=== PATIENT | female | born 1995 | race Caucasian/White ===

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

== ENCOUNTER 2017-06-24 20:49 | Emergency (ER) | payer OTHER ==
[~2017-06-24] VITALS: Ht 165.1 cm; Wt 118.0 kg
[~2017-06-24 20:49] MED LIST changes: +BACT800T5 PO; -PROM25TA5 PO
[2017-06-24 20:51] VITALS: BP 124/73; PULSE 96; RESP 16; TEMP 98.5; O2SAT 98
--- NOTE | 2017-06-24 21:42 | PD ---
HPI Chief Complaint: Injury Time Seen by Provider: 21:29 Travel History International Travel<30 days: No Contact w/Intl Traveler<30days: No Traveled to known affect area: No History of Present Illness HPI The patient is a 21-year-old right-hand dominant female that slammed her right hand in a car door 2 days ago. She complains of pain in the right hand. She denies any other injury. [facility] Past Medical History Medical History: Denies Significant Hx Diminished Hearing: No Immunizations Current: Yes Tetanus Vaccination: < 5 Years Influenza Vaccination: No ?: Not LMP: last month Past Surgical History Surgical History: No Previous Surgery Social History Alcohol Use: No Tobacco Use: Yes (07/13 ppd) Substance Use: No Allergies-Medications (Allergen,Severity, Reaction): Coded Allergies: latex (Unverified Allergy, Intermediate, RASH, 06/24/17) Reported Meds & Prescriptions Reported Meds & Active Scripts Active No Active Prescriptions or Reported Medications Review of Systems Except as stated in HPI: all other systems reviewed are Neg Physical Exam Narrative GENERAL: Well-nourished, well-developed patient and minimal apparent distress with her right hand discomfort. Her vital signs are normal. SKIN: Focused skin assessment warm/dry. HEAD: Normocephalic. EYES: No scleral icterus. No injection or drainage. NECK: Supple, trachea midline. No JVD or lymphadenopathy. CARDIOVASCULAR: Regular rate and rhythm without murmurs, gallops, or rubs. RESPIRATORY: Breath sounds equal bilaterally. No accessory muscle use. GASTROINTESTINAL: Abdomen soft, non-tender, nondistended. MUSCULOSKELETAL: No cyanosis, or edema. There are a few ecchymoses present on the thenar eminence but no tenderness is present there. No bony deformity is present in the hand. There is some tenderness on the fourth metacarpal but no associated deformity. Good capillary refill and pinprick is present distally on all fingers. BACK: Nontender without obvious deformity. No CVA tenderness. Data Data Last Documented VS Vital Signs Date Time Temp Pulse Resp B/P (MAP) Pulse Ox O2 Delivery O2 Flow Rate FiO2 06/24/17 20:51 98.5 96 16 124/73 (90) 98 Orders Orders Hand, Complete ([id number]) (06/24/17 21:29) [facility] Medical Decision Making Medical Screen Exam Complete: Yes Emergency Medical Condition: Yes Medical Record Reviewed: Yes Interpretation(s) X-rays of the hand are normal. Differential Diagnosis Contusion hand, fractured metacarpal, dislocation or joint-highly unlikely Narrative Course The patient has a contusion of the hand. Plan: She should elevate her hand and avoid doing anything that hurts her. If she has Continued pain she should follow-up with her primary care physician. Diagnosis Primary Impression: Contusion of right hand Additional Instructions: If you have continued pain, follow-up with her primary care physician. Otherwise take Motrin [id number] for the pain. Elevate your hand above your heart as much as possible to keep the swelling down. Med/Other Pt SpecificInfo: No Change to Meds Scripts No Active Prescriptions or Reported Meds Disposition: 01 DISCHARGE HOME Condition: Stable Brodie Islas MD Jun 24, 2017 21:42
--- NOTE | 2017-06-24 21:56 | RADRPT ---
EXAM DATE/TIME: 06/24/2017 21:46 [facility] COMPARISON: No previous studies available for comparison. INDICATIONS : Slammed hand in car door. Pain in palm area MEDICAL HISTORY : None. SURGICAL HISTORY : None. ENCOUNTER: Initial ACUITY: 1 day PAIN SCORE: 4/10 LOCATION: Right Hand FINDINGS: Three view examination of the right hand demonstrates no soft tissue swelling, dislocation, or fractu re. The carpal bones appear intact. The interphalangeal and metacarpophalangeal joints are intact. Bony mineralization is normal. CONCLUSION: 1. No acute findings. Alan Rivera MD on June 24, 2017 at 21:53 Board Certified Radiologist. This report was verified electronically.
== END 2017-06-24 22:40 | disposition home or self-care (01) ==
LOC: PHEFT 20:49
DX: S60.221A Contusion of right hand, initial encounter (principal); F17.200 Nicotine dependence, unspecified, uncomplicated; W23.0XXA Caught, crushed, jammed, or pinched between moving objects, initial encounter
CPT/HCPCS: 73130; 99283

== ENCOUNTER 2017-09-21 15:59 | Emergency (ER) | payer OTHER ==
[2017-09-21 16:16] VITALS: BP 125/82; PULSE 109; RESP 18; TEMP 97.5; O2SAT 98
--- NOTE | 2017-09-21 17:12 | RADRPT ---
EXAM DATE/TIME: 09/21/2017 16:47 [facility] COMPARISON: HAND RIGHT COMPLETE ([id number]), June 24, 2017, 21:46. INDICATIONS : Right ankle pain. Patient fell and rolled the right ankle today. MEDICAL HISTORY : None. SURGICAL HISTORY : None. ENCOUNTER: Initial ACUITY: 1 day PAIN SCORE: 8/10 LOCATION: Right lateral ankle. FINDINGS: Two view examination was performed of the right ankle. The bony structures are in normal alignment. No evidence of fracture, dislocation. There is mild soft tissue swelling. No radiopaque foreign bodi es are seen. Bony mineralization is normal. CONCLUSION: 1. Mild soft tissue swelling. No acute fracture identified. Brett Irwin MD on September 21, 2017 at 17:09 Board Certified Radiologist. This report was verified electronically.
--- NOTE | 2017-09-21 18:19 | PD ---
HPI Chief Complaint: Musculoskeletal Complaint Time Seen by Provider: 17:54 Travel History International Travel<30 days: No Contact w/Intl Traveler<30days: No Traveled to known affect area: No History of Present Illness HPI 22-year-old female here with right ankle pain after twisting injury today. She denies seizure weakness extremity. Pain is worse with weightbearing. Symptom severity is mild. Alleviated with rest. PFSH Past Medical History Medical History: Denies Significant Hx Diminished Hearing: No Immunizations Current: Yes LMP: 09/12/17 Social History Alcohol Use: No Tobacco Use: Yes (2 ppd) Substance Use: No Allergies-Medications (Allergen,Severity, Reaction): Coded Allergies: latex (Unverified Allergy, Intermediate, RASH, 06/24/17) Reported Meds & Prescriptions Reported Meds & Active Scripts Active No Active Prescriptions or Reported Medications Review of Systems Except as stated in HPI: all other systems reviewed are Neg Physical Exam Narrative GENERAL: Alert and well-appearing 22-year-old female. Ambulatory without limp. SKIN: Warm and dry. HEAD: Normocephalic. NECK: Supple MUSCULOSKELETAL: No cyanosis. Right lower extremity: Tenderness and mild swelling over the lateral malleolus. Ankle is stable. Normal sensation. 2+ DP pulse. Brisk cap refill. Data Data Last Documented VS Vital Signs Date Time Temp Pulse Resp B/P (MAP) Pulse Ox O2 Delivery O2 Flow Rate FiO2 09/21/17 16:16 97.5 109 18 125/82 (96) 98 Orders Orders Ankle, Limited (Ap&Lat) (09/21/17 ) Chai Bandage (09/21/17 18:19) MDM Medical Decision Making Medical Screen Exam Complete: Yes Emergency Medical Condition: Yes Differential Diagnosis Ankle sprain, ankle fracture, metatarsal fracture, midfoot sprain Narrative Course 22-year-old female here with right ankle and foot pain after twisting injury. Extremity is neurovascularly intact. She is ambulatory with a steady gait. X- rays negative for fracture. PA and lateral view of the ankle and foot were obtained. I do not see a metatarsal fracture. She'll be treated for minor ankle/midfoot sprain. Instructed ice and elevate. Return if she develops new or worsening symptoms. Otherwise follow up with primary doctor Diagnosis Primary Impression: Ankle sprain Qualified Codes: S93.401A - Sprain of unspecified ligament of right ankle, initial encounter Referrals: Primary Care Physician Departure Forms: Tests/Procedures, Work Release Special Instructions: Avoid prolonged standing and excessive walking for one week Additional Instructions: Ice and elevate the extremity. Tylenol and ibuprofen for pain. Follow-up with her primary doctor or return to emergency department if he developed new or worsening symptoms Scripts No Active Prescriptions or Reported Meds Disposition: 01 DISCHARGE HOME Condition: Stable Chantelle Mckay Sep 21, 2017 18:19
== END 2017-09-21 18:30 | disposition home or self-care (01) ==
LOC: NEPK 15:59
DX: S93.401A Sprain of unspecified ligament of right ankle, initial encounter (principal); X50.1XXA Overexertion from prolonged static or awkward postures, initial encounter
CPT/HCPCS: 73600; 99283

== ENCOUNTER 2017-09-22 21:36 | Emergency (ER) | payer OTHER ==
[~2017-09-22] VITALS: Ht 167.6 cm; Wt 122.0 kg
[2017-09-22 21:52] VITALS: BP 123/61; PULSE 100; RESP 18; TEMP 98.2; O2SAT 98
--- NOTE | 2017-09-22 22:10 | PD ---
HPI Chief Complaint: Musculoskeletal Complaint Time Seen by Provider: 22:06 Travel History International Travel<30 days: No Contact w/Intl Traveler<30days: No Traveled to known affect area: No History of Present Illness HPI 22-year-old female presents to the ED for evaluation of 6/10 right foot pain. Onset yesterday after she tripped and fell. Unsure of how she landed. She states that she was seen earlier at her ankle checked out. She states that her pain is now focused in the foot, close to the toes. She denies numbness, tingling, weakness, limitations to range of motion. She has been ambulatory on the foot since the accident. Treated at home with ibuprofen, some improvement in symptoms. PFSH Past Medical History Diminished Hearing: No Immunizations Current: Yes Tetanus Vaccination: < 5 Years Influenza Vaccination: No ?: Not LMP: 09/15/17 Social History Alcohol Use: No Tobacco Use: No (1/2 ppd) Substance Use: No Allergies-Medications (Allergen,Severity, Reaction): Coded Allergies: latex (Unverified Allergy, Intermediate, RASH, 09/22/17) Reported Meds & Prescriptions Reported Meds & Active Scripts Active No Active Prescriptions or Reported Medications Review of Systems Except as stated in HPI: all other systems reviewed are Neg Physical Exam Narrative GENERAL: Well-nourished, well-developed white female in no acute distress. SKIN: Focused skin assessment warm/dry. HEAD: Normocephalic. EYES: No scleral icterus. No injection or drainage. NECK: Supple, trachea midline. No JVD or lymphadenopathy. CARDIOVASCULAR: Regular rate and rhythm without murmurs, gallops, or rubs. RESPIRATORY: Breath sounds equal bilaterally. No accessory muscle use. GASTROINTESTINAL: Abdomen soft, non-tender, nondistended. MUSCULOSKELETAL: No cyanosis, or edema. FOCUSED RIGHT LOWER EXTREMITY EXAM: 2+ DP pulse. Ecchymosis noted at the base of the third fourth and fifth digits. Tender to palpation of the bones of the midfoot. Tender to palpation of the navicular. Patient is able to wiggle her toes. Sensation intact to light touch distally. BACK: Nontender without obvious deformity. No CVA tenderness. Data Data Last Documented VS Vital Signs Date Time Temp Pulse Resp B/P (MAP) Pulse Ox O2 Delivery O2 Flow Rate FiO2 09/22/17 21:52 98.2 100 18 123/61 (81) 98 Orders Orders Foot, Limited (2vws) (09/22/17 22:10) Ed Discharge Order (09/22/17 22:43) [facility] Medical Decision Making Medical Screen Exam Complete: Yes Emergency Medical Condition: Yes Differential Diagnosis Ankle sprain versus foot sprain versus fracture versus other Narrative Course 22-year-old female presents to the ED for evaluation of 6/10 right foot pain. Onset yesterday after she tripped and fell. Unsure of how she landed. She had a x-ray of the ankle and was provided crutches and Chai wrap. She's been minimally ambulatory on the foot. Pain now located in the forefoot near the toes. On exam the patient does have some bruising on the forefoot and tenderness to palpation of the metatarsals. X-ray of the foot reveals no acute bony injury. Patient is instructed to continue with RICE therapy, follow with the orthopedist or tank car mechanic if symptoms persist. She is stable and discharged home. Diagnosis Primary Impression: Right foot sprain Qualified Codes: S93.601A - Unspecified sprain of right foot, initial encounter Referrals: Hydraulic Lift Operator Patient Instructions: Foot Sprain (ED), General Instructions Additional Instructions: Rest, ice, elevate the extremity. Apply ice no longer than 10-15 minutes per hour a few times a day. 800 mg ibuprofen up to 3 times a day as needed for pain. Return to normal, gentle activity as tolerated. No running, jumping activities for the next few weeks. Follow up with tank car mechanic. Return to the ED for any urgent or emergent medical condition. Scripts No Active Prescriptions or Reported Meds Disposition: 01 DISCHARGE HOME Condition: Stable Cindy Barfield Sep 22, 2017 22:10
--- NOTE | 2017-09-22 22:48 | RADRPT ---
EXAM DATE/TIME: 09/22/2017 22:20 [place] COMPARISON: ANKLE RIGHT LIMITED (AP&LAT), September 21, 2017, 16:47. INDICATIONS : Right foot pain. Patient fell and rolled the right ankle yesterday. MEDICAL HISTORY : None. SURGICAL HISTORY : None. ENCOUNTER: Initial ACUITY: 1 day PAIN SCORE: 8/10 LOCATION: Right dorsal surface of foot FINDINGS: Two view examination of the right foot demonstrates no soft tissue swelling, dislocation, or fracture . The calcaneus is intact. Bony mineralization is normal. CONCLUSION: No evidence of fracture or subluxation of the right foot. Darci Adamson MD on September 22, 2017 at 22:46 Board Certified Radiologist. This report was verified electronically.
== END 2017-09-22 22:49 | disposition home or self-care (01) ==
LOC: PHEFT 21:36
DX: S93.601A Unspecified sprain of right foot, initial encounter (principal); W01.0XXA Fall on same level from slipping, tripping and stumbling without subsequent striking against object, initial encounter; F17.210 Nicotine dependence, cigarettes, uncomplicated; Z91.040 Latex allergy status
CPT/HCPCS: 73620; 99283

== ENCOUNTER 2017-12-16 12:58 | Emergency (ER) | payer OTHER ==
[~2017-12-16] VITALS: Ht 165.1 cm; Wt 120.5 kg
[2017-12-16 13:07] VITALS: BP 133/89; PULSE 108; RESP 18; TEMP 98; O2SAT 98
[2017-12-16] MEDS ORDERED: SERO300T PO (13:09)
--- NOTE | 2017-12-16 13:13 | PD ---
HPI Chief Complaint: Laceration/Skin Injury Time Seen by Provider: 13:06 Travel History International Travel<30 days: No Contact w/Intl Traveler<30days: No Traveled to known affect area: No History of Present Illness HPI 22-year-old female presents to the emergency room for evaluation of laceration to her left second finger that occurred last night at 10:00 PM. Patient accidentally cut herself with a sharp knife while trying to open a package. She applied a dressing to but states it would not stop bleeding at work today. She reports minimal pain. States it feels like it is numb. Last tetanus was 2- 3 years ago. Only history of PTSD for which she takes Seroquel. PFS Past Medical History Diminished Hearing: No Immunizations Current: Yes ?: Not Social History Alcohol Use: No Tobacco Use: No (1/2 ppd) Substance Use: No Allergies-Medications (Allergen,Severity, Reaction): Coded Allergies: latex (Unverified Allergy, Intermediate, RASH, 12/16/17) Reported Meds & Prescriptions Reported Meds & Active Scripts Active Reported Seroquel (Quetiapine Fumarate) 300 Mg Tab 300 Mg PO HS Review of Systems Except as stated in HPI: all other systems reviewed are Neg Physical Exam Narrative GENERAL: Well-nourished, well-developed female no acute distress. Afebrile. Ambulator there is a very superficial y. SKIN: Focused skin assessment warm/dry. Curvilinear avulsion to the left second finger over the pulp space. Skin in place. No bleeding. Nontender. No surrounding erythema or lymphangitis. No drainage. HEAD: Normocephalic. EYES: No scleral icterus. No injection or drainage. NECK: Supple, trachea midline. No JVD or lymphadenopathy. CARDIOVASCULAR: Regular rate and rhythm without murmurs, gallops, or rubs. RESPIRATORY: Breath sounds equal bilaterally. No accessory muscle use. MUSCULOSKELETAL: No cyanosis, or edema. Full range of motion. Data Data Last Documented VS Vital Signs Date Time Temp Pulse Resp B/P (MAP) Pulse Ox O2 Delivery O2 Flow Rate FiO2 12/16/17 13:07 98.0 108 18 133/89 (104) 98 Orders Orders Ed Discharge Order (12/16/17 13:21) MDM Medical Decision Making Medical Screen Exam Complete: Yes Emergency Medical Condition: Yes Medical Record Reviewed: Yes Differential Diagnosis Laceration, avulsion, contusion Narrative Course 22-year-old right-handed female presents to the emergency room for evaluation of a skin avulsion to the left second finger pulp space that occurred last night when she accidentally cut herself with a knife. Last tetanus was 2-3 years ago. Physical exam reveals a 1 cm curvilinear avulsion with skin in place to the left pulp space. Nonbleeding. No signs of infection. The wound was thoroughly cleansed the emergency room and then repaired with glue. Patient is slightly tachycardic at 108 bpm. States she has history of tachycardia since high school. Heart rate is consistent from previous recorded. Patient discharged with wound care instructions and told to follow- up with primary care physician or return for worsening symptoms. She understands and agrees to plan. Diagnosis Primary Impression: Avulsion of skin of finger Qualified Codes: S61.209A - Unspecified open wound of unspecified finger without damage to nail, initial encounter Referrals: Primary Care Physician Additional Instructions: Keep wound clean and dry. Glue will fall off on its own. When it does, apply triple antibiotic ointment daily. Follow-up with a primary care physician. Return to the emergency room for worsening symptoms. Med/Other Pt SpecificInfo: Prescription(s) given Disposition: 01 DISCHARGE HOME Condition: Stable Dayanara Box Dec 16, 2017 13:13
== END 2017-12-16 13:27 | disposition home or self-care (01) ==
LOC: PHEFT 12:58
DX: S61.211A Laceration without foreign body of left index finger without damage to nail, initial encounter (principal); W26.0XXA Contact with knife, initial encounter; R00.0 Tachycardia, unspecified; F43.10 Post-traumatic stress disorder, unspecified
CPT/HCPCS: 12001